=== PATIENT | female | born 1985 | race Caucasian/White ===

== ENCOUNTER 2020-02-27 22:30 | Inpatient (IN) | payer OTHER, SELFPAY ==
[2020-02-27] VITALS (13 sets, daily range): BP systolic 125–141; BP diastolic 70–86; PULSE 87–107; O2SAT 100
--- NOTE | 2020-02-27 23:13 | WPDOBADMIT ---
Obstetrics - Admit Note Admission Note: record reviewed. No pertinent additions to the history and/or any subsequent changes in the physical findings that are not consistent with the expected course of the were found. Pt arrived in labor at 5 cm dipesh q 2 minutes. gbs unknown. Additions to the history and/or subsequent changes in the physical findings follow. None.
[2020-02-27] MEDS: LACTATED RINGERS 1,000 ML 125 ML IV CONT (23:18)
[2020-02-27] MEDS: AMPICILLIN 2 GM/NS 100 ML 2 GM/100 ML BAG IVPB (23:19)
[2020-02-27 23:26] LABS: Basophils Percent Auto 0.2 % (0.2-1.2); Eosinophils Absolute Auto 0.1 K/mm3 (0-0.3); Eosinophils Percent Auto 0.5 % (0-4.4); Hematocrit 32.4 % (37.0-47.0); Hemoglobin 10.5 g/dL (12.0-15.0); Immature Granulocyte Absolute 0.12 K/mm3 (0.00-0.031); Immature Granulocyte Percent A 1.2 % (0-0.5); Lymphocytes Absolute Auto 1.57 K/mm3 (0.9-3.2); Lymphocytes Percent Auto 15.9 % (18.3-44.2); Mean Corpuscular HGB Conc 32.4 g/dl (32-36); Mean Corpuscular Hemoglobin 25.5 pg (26-34); Mean Corpuscular Volume 78.8 fl (80-100); Mean Platelet Volume 12.9 fl (7.4-10.4); Neutrophils Absolute Auto 7.1 K/mm3 (1.3-6.7); Neutrophils Percent Auto 72.2 % (45.5-73.1); Platelet Count Result 205 k/mm3 (150-375); Red Blood Count 4.11 M/mm3 (4.2-5.4); Red Cell Distribution Width 16.2 % (11.5-14.5); White Blood Count 9.9 K/mm3 (4.5-10.0)
--- NOTE | 2020-02-27 23:27 | LDADM ---
This patient, Payal Barros, was admitted to Labor/Delivery/Recovery 105 on 02/27/20 at 22:30. Plans for labor, pain management and were discussed with patient. Patient/family oriented to hospital policies and general routines including ID bracelet, bed and alarms, visiting hours, pain management, procedures, bathroom and other care routines, personal items, smoking policy, room service/diet and guest tray routines, infant security routines, and visiting hours. Patient/Family are encouraged to report perceived risks to care and to ask questions if they do not understand what they are told or what they should do. See OBIX for further documentation.
[2020-02-28] VITALS (30 sets, daily range): BP systolic 100–188; BP diastolic 60–130; PULSE 77–119; RESP 16; TEMP 36.6–37.1; O2SAT 99–100; BMI 35.5
--- NOTE | 2020-02-28 00:21 | WPDANESEPPF ---
Anes - Initial Pre Proc Eval Procedure: labor epidural Date/Time: 02/28/20 00:21 Surgeon: Krystal Resendiz MD Pre Op Diagnosis: labor pain Pre Op Diagnosis: Contractions Patient Data Age: 34 Gender: F Height: 1.73 m Weight: 106 kg Last Vital Signs Pulse 115 H 02/28/20 00:19 BP 154/100 H 02/28/20 00:19 Pulse Ox 100 02/28/20 00:13 Laboratory Tests 02/27/20 02/27/20 23:18 23:18 WBC 9.9 K/mm3 K/mm3 (4.5-10.0) RBC 4.11 M/mm3 L M/mm3 (4.2-5.4) Hgb 10.5 g/dL L g/dL (12.0-15.0) Hct 32.4 % L % (37.0-47.0) MCV 78.8 fl L fl (80-100) MCH 25.5 pg L pg (26-34) MCHC 32.4 g/dl g/dl (32-36) RDW 16.2 % H % (11.5-14.5) Plt Count 205 k/mm3 k/mm3 (150-375) MPV 12.9 fl H fl (7.4-10.4) Immature Gran % (Auto) 1.2 % H % (0-0.5) Neut % (Auto) 72.2 % % (45.5-73.1) Lymph % (Auto) 15.9 % L % (18.3-44.2) [place] % (Auto) 10.0 % H % (2.6-8.5) Eos % (Auto) 0.5 % % (0-4.4) Baso % (Auto) 0.2 % % (0.2-1.2) Lymph # (Auto) 1.57 K/mm3 K/mm3 (0.9-3.2) [place] # (Auto) 1.0 K/mm3 H K/mm3 (0.1-0.6) Eos # (Auto) 0.1 K/mm3 K/mm3 (0-0.3) Baso # (Auto) 0.0 K/mm3 K/mm3 (0.0-0.1) Abs Immat Gran (auto) 0.12 K/mm3 H K/mm3 (0.00-0.031) Absolute Neuts (auto) 7.1 K/mm3 H K/mm3 (1.3-6.7) Absolute Nucleated RBC 0.0 K/mm3 K/mm3 (0.0-0.012) Nucleated RBC % 0.0 % % (0.0-0.2) RPR Pending Patient hx anesthesia problems: none Family hx anesthesia problems: none PMFSH Social History Social History Smoking status: Never smoker Substance use: never Gender identity (if verbalized by the patient): Female Sexual Orientation (if Verbalized by the Patient): Straight or Heterosexual Spiritual care concerns: No Anes - Eval Final PreProcedure Day of Procedure 02/28/20 00:21 Patient weight: obese Heart: regular rate and rhythm Lungs: clear to auscultation and normal air movement Airway: Mallampati scale class II Neurological: alert and oriented ASA classification: II Anesthetic plan: proceed Anesthesia type and monitoring: regional epidural and standard monitoring Informed Consent: The patient's anesthetic plan and its attendant risks and benefits were discussed with the patient/family/POA. Questions were solicited and answers provided to the satisfaction of the patient/family/POA.
[2020-02-28] MEDS: AMPICILLIN 1 GM/NS 50 ML 1 GM/50 ML BAG IVPB (02:47)
[2020-02-28] MEDS: OXYTOCIN 30 UNITS/NS 500 ML 30 UNITS/500 ML BAG 999 UNITS IV CONT (03:35)
--- NOTE | 2020-02-28 03:42 | P.PCNOB_ITS ---
OB - Delivery Note Procedure Delivery date: 02/28/20 Procedure: vaginal . events: Labor < 37 Weeks Intrapartal events: None Induction method: none Delivery augmentation: rupture of membranes Delivery monitor: external FHT and external uterine Route of delivery: Episiotomy description: None Laceration description: None Specimen: Yes Estimated blood loss (mL): 215 Anesthesia type: Epidural Disposition: other () [place] Baby Date of : 02/28/20 Time of : 03:28 Weeks of gestation at delivery: 36 Infant gender: Female Weight (pounds): 6 Weight (ounces): 15 presentation: vertex position: Left Occiput Anterior Placenta delivery description: Spontaneous cord vessel description: 3 Vessels, True Knot, Clamped/Cut and Around Extremity x1 score one minute: 8 score five minutes: 9 Narrative: mother and baby skin to skin, in stable condition.
[2020-02-28] MEDS: OXYTOCIN 30 UNITS/NS 500 ML 30 UNITS/500 ML BAG 125 UNITS IV CONT (04:13)
--- NOTE | 2020-02-28 07:18 | PC.NURSE ---
Patient transferred to post room #283 via wheelchair. Support person present. Oriented to unit, room, information board, rooming in, admission packet and security measures. Patient verbalizes understanding.
[2020-02-28] MEDS: IBUPROFEN 600 MG TABLET PO ×2 (07:53→14:56)
[2020-02-28] MEDS: ONDANSETRON HCL ODT 4 MG TABLET PO (11:22)
[2020-02-28] MEDS: TETANUS,DIPHTHERIA,AC PERTUSSIS ADULT (0.5 ML) BOOSTRIX IM (14:59)
[2020-02-28] MEDS: ACETAMINOPHEN 325 MG TABLET 650 MG PO (18:39)
[2020-02-28] MEDS: HYDROCORTISONE 1% 30 GM CREAM 1 APPLIC TOPICAL (20:15)
[2020-02-29 05:27] LABS: Hematocrit 28.8 % (37.0-47.0); Hemoglobin 8.9 g/dL (12.0-15.0)
[2020-02-29 07:00] VITALS: BP 128/79; PULSE 77; RESP 18; TEMP 36.6; O2SAT 99
[2020-02-29] MEDS: IBUPROFEN 600 MG TABLET PO ×3 (07:15→19:01)
[2020-02-29] MEDS: DOCUSATE SODIUM 100 MG CAPSULE PO ×2 (07:16→17:11)
[2020-02-29] MEDS: POLYSACCHARIDE IRON COMPLEX 150 MG CAPSULE PO ×2 (07:16→17:11)
--- NOTE | 2020-02-29 10:39 | PM.OBPNVD ---
OB - PN: Subj Subjective Date/time seen: 02/29/20 10:39 Patient comments: no complaints and pain well controlled baby status: doing well OB - PN: Obj Data Labs CBC & Chem 7: 02/29/20 05:12 Labs: Laboratory Results - last 24 hr 02/29/20 05:12 Hgb 8.9 L Hct 28.8 L OB - PN A/P Plan day: 1 Plan: routine care Time Spent With Patient Time: Total time spent is greater than 50% in coordination of care (as documented) at patient's floor/unit and/or counseling patient: Review of Systems Review of Systems: All systems reviewed & are unremarkable except as noted in HPI and below Exam Const: General: comfortable Chest: Breast/axilla inspection: normal inspection of the breasts Resp: Effort & Inspection: normal respiratory effort Psych: Appearance: grossly normal Affect: normal affect Attitude: cooperative Judgement: Good judgement present (Psych)
[2020-02-29 18:53] VITALS: BP 134/67; PULSE 84; RESP 16; TEMP 37; O2SAT 100
[2020-02-29] MEDS: WITCH HAZEL 40 PADS 1 PAD TOPICAL (19:02)
[2020-03-01] MEDS: IBUPROFEN 600 MG TABLET PO (05:57)
[2020-03-01 07:19] LABS: Rapid Plasma Reagin Non-Reactive (NonReactive)
[2020-03-01] MEDS: POLYSACCHARIDE IRON COMPLEX 150 MG CAPSULE PO (07:46)
[2020-03-01] MEDS: DOCUSATE SODIUM 100 MG CAPSULE PO (07:46)
[2020-03-01] MEDS: WITCH HAZEL 40 PADS 1 PAD TOPICAL (07:47)
[2020-03-01] MEDS: BENZOCAINE 20% AER SPR (*SP) 56 GM CAN 1 SPRAY TOPICAL (07:47)
--- NOTE | 2020-03-01 07:56 | PM.OBPNVD ---
OB - PN: Subj Subjective Date/time seen: 03/01/20 07:56 Patient comments: no complaints, pain well controlled and tolerating diet OB - PN: Obj Data Labs CBC & Chem 7: 02/29/20 05:12 Labs: Laboratory Results - last 24 hr 02/27/20 23:18 RPR Non-reactive OB - PN A/P Plan day: 2 Plan: routine care and discharge home Time Spent With Patient Time: Total time spent is greater than 50% in coordination of care (as documented) at patient's floor/unit and/or counseling patient: Exam Const: General: comfortable and no acute distress Resp: Effort & Inspection: normal respiratory effort Auscultation: no rales, no rhonchi and no wheezes Cardio: Rate: regular rate Heart sounds: no click, no murmurs and no rubs GI: GI Palp: Yes Soft to palpation and No Tenderness to palpation present (GI) Auscultation: normal bowel sounds Extrem: General: normal to inspection, no pedal edema and no calf tenderness
--- NOTE | 2020-03-01 07:57 | P.DS_ITS ---
DS: Admitting Diagnosis Admitting Diagnosis Admitting Diagnosis: Contractions DS: Discharge Diagnosis Discharge Diagnosis (1) Term delivered: Code(s): O80 - Encounter for full-term uncomplicated delivery Status: Acute OB - DS: Summary OB Procedures : None OB Procedures Intrapartum: Spontaneous Vag Delivery OB Procedures: : None Peripartum Data Delivery Method: Natural Vaginal Time Spent with Patient Time attestation: Total time spent providing and/or coordinating discharge services: DS: Data Data Completed and Pending Pending studies at discharge: Pending at discharge 02/28/20 03:35 Surgical [PTH] Routine Labs on day of discharge: Labs from last 24 hours 02/27/20 23:18 RPR Non-reactive Discharge Plan Discharge Attending physician on discharge: Kathy Martinez Consulting providers: Uma Vargas Sarah E. Discharging Clinician: Kathy Martinez Patient Disposition: Home, Self-Care Activity: pelvic rest Diet: regular Discharge Instructions: Education: Mom and Baby Guide Given to: Mother Follow-Up: Call your delivering provider's office for an appointment to be seen in: 4 Weeks Mom and baby should come to the [facility] for the follow-up appointment. Appointment Date/Time: March 02, 2020 at 8:00 am What to expect at your follow-up visit: Blood Pressure Check Physical Assessment Call [phone] if you are unable to keep your appointment time. BREAST CARE: * Wear a snug supportive bra. * Bottle Feeding: * May apply ice packs EPISIOTOMY/PERINEAL CARE: * Until bleeding stops, use your maik bottle after urinating * Change your pad frequently throughout the day * You may take sitz baths several times a day (fill your bathtub with warm water and soak for 20 minutes.) Do NOT bathe in the water * No tub baths until seen by your physician - You may shower ACTIVITY: * Rest as much as possible. * Do not exercise or lift anything heavier than your baby (such as laundry or other children.) * Avoid stairs or driving as much as possible. * Do not put anything into the vagina. No douching, tampons, or sexual activity until seen by physician. NOTIFY PHYSICIAN IF YOU HAVE ANY QUESTIONS OR IF ANY OF THE FOLLOWING SYMPTOMS OCCUR: * If your perineum becomes red, swollen, or more painful than what you have experienced in the hospital. * If your vaginal bleeding becomes foul smelling. * If your vaginal bleeding becomes more heavy than a period or if your bleeding changes from pink to bright red. However, you may pass an occasional walnut- sized clot once or twice for the first week . * If you experience a sharp, shooting pain in your calves. * If you discover a hard, reddened area on your breast or if you experience flu- like symptoms. DIET: * Eat regular, well-balanced meals. * Drink plenty of fluids daily. If , drink to thirst. Stand Alone Forms: General Discharge Information Follow-up/Referrals: Kathy Martinez MD [Physician] - Date of admission: 02/27/20 22:30 Primary Care Provider: Joe Mayfield Admitting Provider: Kathy Martinez Discharge Date/Time: 03/01/20 11:04 Attending physician on admission: Kathy Martinez
[2020-03-01 09:16] VITALS: BP 115/75; PULSE 71; RESP 16; TEMP 36.2; O2SAT 99
[2020-03-02 07:55] VITALS: BP 131/80; PULSE 84; RESP 20; TEMP 37.6
== END 2020-03-01 11:04 | disposition home or self-care (01) | DRG 560 ==
LOC: ANHLDR 23:21 → ANHOB2 03-01 07:58 → ANHLDR 03-01 16:51 → ANHOB2 03-01 16:51
PROVIDERS: Advanced Practice Midwife; Admitting Provider Obstetrics & Gynecology; Visit Provider Obstetrics & Gynecology
DX: O60.14X0 Preterm labor third trimester with preterm delivery third trimester, not applicable or unspecified (principal); Z37.0 Single live birth; Z3A.36 36 weeks gestation of pregnancy; O99.824 Streptococcus B carrier state complicating childbirth; Z23 Encounter for immunization; O99.214 Obesity complicating childbirth; E66.9 Obesity, unspecified; O69.2XX0 Labor and delivery complicated by other cord entanglement, with compression, not applicable or unspecified
CPT/HCPCS: 36415; 85014; 85018; 85025; 86592; 86850; 86900; 86901; 88307; 90471; 90686; 90715; A9270; G0008; J0290; J2590; J2795; J7120

== ENCOUNTER 2023-11-07 21:12 | Inpatient (IN) | payer OTHER, SELFPAY ==
[2023-11-07] MEDS: TERBUTALINE SULFATE 1 MG/ML VIAL 0.25 MG SUB-Q ×2 (22:17→22:50)
[2023-11-07] MEDS: BETAMETHASONE SOD PHOS/ACETATE 30 MG/5 ML VIAL 12 MG IM (22:22)
[2023-11-07] MEDS: LACTATED RINGERS 1,000 ML 125 ML IV CONT (22:52)
[2023-11-08] VITALS (129 sets, daily range): BP systolic 115–163; BP diastolic 58–106; PULSE 32–139; RESP 16; TEMP 36.8–37.6; O2SAT 92–100; BMI 38.5
--- NOTE | 2023-11-08 00:11 | LDADM ---
This patient, Payal Barros, was admitted to Labor/Delivery/Recovery 105 on 11/08/23 at 00:08. Plans for labor, pain management and were discussed with patient. Patient/family oriented to hospital policies and general routines including ID bracelet, bed and alarms, visiting hours, pain management, procedures, bathroom and other care routines, personal items, smoking policy, room service/diet and guest tray routines, infant security routines, and visiting hours. Patient/Family are encouraged to report perceived risks to care and to ask questions if they do not understand what they are told or what they should do. See OBIX for further documentation.
[2023-11-08] MEDS: AMPICILLIN 2 GM/NS 100 ML 2 GM/100 ML BAG IVPB (00:22)
[2023-11-08 00:23] LABS: Basophils Percent Auto 0.2 % (0.2-1.2); Eosinophils Percent Auto 0.1 % (0-4.4); Hematocrit 31.8 % (37.0-47.0); Hemoglobin 9.7 g/dL (12.0-15.0); Immature Granulocyte Absolute 0.13 K/mm3 (0.00-0.031); Immature Granulocyte Percent A 1.2 % (0-0.5); Lymphocytes Absolute Auto 1.13 K/mm3 (0.9-3.2); Lymphocytes Percent Auto 10.3 % (18.3-44.2); Mean Corpuscular HGB Conc 30.5 g/dl (32-36); Mean Corpuscular Hemoglobin 23.5 pg (26-34); Monocytes Absolute Auto 0.6 K/mm3 (0.1-0.6); Monocytes Percent Auto 5.5 % (2.6-8.5); Neutrophils Absolute Auto 9.1 K/mm3 (1.3-6.7); Neutrophils Percent Auto 82.7 % (45.5-73.1); Platelet Count Result 225 k/mm3 (150-375); Red Blood Count 4.13 M/mm3 (4.2-5.4); Red Cell Distribution Width 16.5 % (11.5-14.5)
[2023-11-08 01:14] LABS: HIV 1/2 Ab P24 Ag Result Negative (Negative)
--- NOTE | 2023-11-08 01:32 | P.PNAN_ITS ---
Anes - Eval Pre Procedure Procedure: labor epidural Date/Time: 11/08/23 01:32 Surgeon: bud Preop Diagnosis: pain during labor Pre Op Diagnosis: Contractions Patient Data Age: 38 Gender: F Height: 1.7 m Weight: 111.5 kg Last Vital Signs Pulse Ox 100 11/08/23 01:30 O2 Del Method Room Air 11/08/23 00:10 Allergies Allergy/AdvReac Type Severity Reaction Status Date / Time No Known Allergies Allergy Verified 02/28/20 01:09 Laboratory Tests 11/08/23 00:16 WBC 11.0 H K/mm3 (4.5-10.0) RBC 4.13 L M/mm3 (4.2-5.4) Hgb 9.7 L g/dL (12.0-15.0) Hct 31.8 L % (37.0-47.0) MCV 77.0 L fl (80-100) MCH 23.5 L pg (26-34) MCHC 30.5 L g/dl (32-36) RDW 16.5 H % (11.5-14.5) Plt Count 225 k/mm3 (150-375) MPV 12.0 H fl (7.4-10.4) Immature Gran % (Auto) 1.2 H % (0-0.5) Neut % (Auto) 82.7 H % (45.5-73.1) Lymph % (Auto) 10.3 L % (18.3-44.2) [place] % (Auto) 5.5 % (2.6-8.5) Eos % (Auto) 0.1 % (0-4.4) Baso % (Auto) 0.2 % (0.2-1.2) Lymph # (Auto) 1.13 K/mm3 (0.9-3.2) [place] # (Auto) 0.6 K/mm3 (0.1-0.6) Eos # (Auto) 0.0 K/mm3 (0-0.3) Baso # (Auto) 0.0 K/mm3 (0.0-0.1) Abs Immat Gran (auto) 0.13 H K/mm3 (0.00-0.031) Absolute Neuts (auto) 9.1 H K/mm3 (1.3-6.7) Absolute Nucleated RBC 0.000 K/mm3 (0.0-0.012) Nucleated RBC % 0.0 % (0.0-0.2) RPR Pending HIV 1&2 Ab/P24 Ag 4thGn Negative (Negative) Patient hx anesthesia problems: none Family hx anesthesia problems: none Results Review: All pre-operative results and documents have been reviewed as part of the pre- operative evaluation. [facility] Past Medical History Medical History (Updated 11/08/23 @ 01:33 by Ann Marie Zaidi CRNA) Anxiety Depression Obesity (BMI 30-39.9) Family History Family History (Updated 11/08/23 @ 00:45 by Yogesh Wesley RN) Other Fabry (jon) disease Hyperthyroidism Lung cancer Social History Social History Smoking status: Never smoker Second hand tobacco smoke exposure: No Substance use: never Do You Feel Safe in your Home?: Yes Lack of Transportation: No Lack of Food: Never True Current Housing: I Have Housing Concerned About Future Housing: No Difficulty Paying Gas/Electric Bills: No Difficulty Paying for Meds: No Currently Unemployed: No Education: High School Diploma/GED Difficulty w/ Childcare or Family Care: No Gender identity (if verbalized by the patient): Female Sexual Orientation (if Verbalized by the Patient): Straight or Heterosexual Spiritual care concerns: No Exam Day of Procedure 11/08/23 01:32
[2023-11-08] MEDS: LACTATED RINGERS 1,000 ML 125 ML IV CONT (02:03)
[2023-11-08] MEDS: AMPICILLIN 1 GM/NS 50 ML 1 GM/50 ML BAG IVPB ×2 (04:21→08:28)
--- NOTE | 2023-11-08 06:37 | PM.IMHP ---
H&P: HPI History of Present Illness Date/Time: 11/08/23 06:37 Chief Complaint: pt arrived in LD for evaluation of contractions, Pt arrived at 2 cm, 2 doses of terbutaline and IV hydration, pt advanced to 6 cm over the am, antibiotic were started and dose of betamethasone given. this morning, pt resting comfortably with epidural. complicated by anemia, AMA, and history of preeclampsia.Dr. Martinez updated Review of Systems Review of Systems: All systems reviewed & are unremarkable except as noted in HPI and below PMFSH Past Medical History Medical History (Updated 11/08/23 @ 06:50 by Marta Veronica CNM) Anxiety Depression Obesity (BMI 30-39.9) Family History Family History (Updated 11/08/23 @ 00:45 by Yogesh Wesley RN) Other Fabry (-jon) disease Hyperthyroidism Lung cancer Social History Social History Smoking status: Never smoker Second hand tobacco smoke exposure: No Substance use: never Do You Feel Safe in your Home?: Yes Lack of Transportation: No Lack of Food: Never True Current Housing: I Have Housing Concerned About Future Housing: No Difficulty Paying Gas/Electric Bills: No Difficulty Paying for Meds: No Currently Unemployed: No Education: High School Diploma/GED Difficulty w/ Childcare or Family Care: No Gender identity (if verbalized by the patient): Female Sexual Orientation (if Verbalized by the Patient): Straight or Heterosexual Spiritual care concerns: No Meds Home Medications and Allergies Allergies Allergy/AdvReac Type Severity Reaction Status Date / Time No Known Allergies Allergy Verified 02/28/20 01:09 Vital Signs Vital Signs - 24 hr 11/08/23 01:30 11/08/23 01:35 11/08/23 01:40 Temperature Pulse Rate Blood Pressure Pulse Oximetry 100 100 100 Oxygen Delivery 11/08/23 01:41 11/08/23 01:43 11/08/23 01:45 Temperature Pulse Rate 94 96 98 Blood Pressure 153/74 H 148/83 H 162/81 H Pulse Oximetry 100 Oxygen Delivery 11/08/23 01:47 11/08/23 01:47 11/08/23 01:48 Temperature Pulse Rate 91 Blood Pressure 142/83 H Pulse Oximetry 100 100 98 Oxygen Delivery 11/08/23 01:50 11/08/23 01:53 11/08/23 01:55 Temperature Pulse Rate 88 90 97 Blood Pressure 137/75 153/74 H 152/77 H Pulse Oximetry 100 Oxygen Delivery 11/08/23 01:58 11/08/23 02:00 11/08/23 02:03 Temperature Pulse Rate 96 100 98 Blood Pressure 151/81 H 152/76 H 163/74 H Pulse Oximetry 100 99 Oxygen Delivery 11/08/23 02:05 11/08/23 02:08 11/08/23 02:10 Temperature Pulse Rate 91 93 87 Blood Pressure 151/80 H 152/76 H 141/72 H Pulse Oximetry 100 Oxygen Delivery 11/08/23 02:13 11/08/23 02:16 11/08/23 02:18 Temperature Pulse Rate 95 93 102 H Blood Pressure 151/76 H 154/79 H 146/79 H Pulse Oximetry 99 100 Oxygen Delivery 11/08/23 02:20 11/08/23 02:23 11/08/23 02:28 Temperature Pulse Rate 89 98 Blood Pressure 149/76 H 145/79 H Pulse Oximetry 99 100 Oxygen Delivery 11/08/23 02:30 11/08/23 02:33 11/08/23 02:38 Temperature Pulse Rate 89 Blood Pressure 149/80 H Pulse Oximetry 100 100 Oxygen Delivery 11/08/23 02:43 11/08/23 02:45 11/08/23 02:24 Temperature 36.9 C Pulse Rate 94 Blood Pressure 146/106 H Pulse Oximetry 100 Oxygen Delivery 11/08/23 02:48 11/08/23 02:49 11/08/23 02:53 Temperature Pulse Rate 85 Blood Pressure 151/76 H Pulse Oximetry 100 100 Oxygen Delivery 11/08/23 02:58 11/08/23 03:00 11/08/23 03:03 Temperature Pulse Rate 110 H Blood Pressure 149/81 H Pulse Oximetry 98 100 Oxygen Delivery 11/08/23 03:08 11/08/23 03:13 11/08/23 03:15 Temperature Pulse Rate 97 Blood Pressure 150/79 H Pulse Oximetry 100 99 Oxygen Delivery 11/08/23 03:18 11/08/23 03:23 11/08/23 03:28 Temperature Pulse Rate B
[2023-11-08 07:43] LABS: Rubella IgG Antibody 4.6 IU/ML
[2023-11-08] MEDS: OXYTOCIN 30 UNITS/NS 500 ML 30 UNITS/500 ML BAG 999 UNITS IV CONT (09:15)
--- NOTE | 2023-11-08 09:37 | P.PCNOB_ITS ---
OB - Vaginal Delivery Note Procedure Delivery date: 11/08/23 Intrapartal Events: Other ( labor) Delivery augmentation: Rupture of Membranes Delivery monitor: External FHT and External Uterine Route of delivery: Episiotomy description: None Laceration Description: None Specimen: Yes Quantitative Blood Loss (ml): 110 Anesthesia type: Epidural Disposition: Floor Narrative: hed delivered, anterior shoulder not easily delivered, gently lifted posterior shoulder and then anterior shoulder loosened and was delivered, followed by the rest of the baby without difficulty. [place] Baby Weeks of gestation at delivery: 35
[2023-11-08] MEDS: OXYTOCIN 30 UNITS/NS 500 ML 30 UNITS/500 ML BAG 125 UNITS IV CONT (09:46)
[2023-11-08] MEDS: WITCH HAZEL 40 PADS 1 PAD TOPICAL (11:24)
[2023-11-08] MEDS: IBUPROFEN 600 MG TABLET PO ×2 (12:49→21:44)
[2023-11-08] MEDS: DOCUSATE SODIUM 100 MG CAPSULE PO (15:34)
[2023-11-08] MEDS: POLYSACCHARIDE IRON COMPLEX 150 MG CAPSULE PO (15:34)
[2023-11-08 18:06] LABS: Rapid Plasma Reagin Non-Reactive (NonReactive)
[2023-11-08 20:04] LABS: Hemoglobin 8.8 g/dL (12.0-15.0)
--- NOTE | 2023-11-09 08:05 | PM.OBDSVD ---
DS: Admitting Diagnosis Discharge Date 11/08/23 Admitting Diagnosis labor DS: Discharge Diagnosis Discharge Diagnosis (1) Vaginal delivery: Code(s): O80 - Encounter for full-term uncomplicated delivery Status: Acute OB - DS: Summary OB Procedures : None OB Procedures Intrapartum: Spontaneous Vag Delivery OB Procedures: : None Peripartum Data Laceration Description: None Episiotomy description: None Time Spent with Patient Time attestation: Total time spent providing and/or coordinating discharge services: DS: Data Data Completed and Pending Pending studies at discharge: Pending at discharge 11/08/23 09:16 Surgical [PTH] Routine Labs on day of discharge: Labs from last 24 hours 11/08/23 11/08/23 19:59 00:16 Hgb 8.8 L Hct 29.0 L RPR Non-reactive Discharge Plan Discharge Attending physician on discharge: Marta Veronica Discharging Clinician: Marta Veronica Anticipated Discharge Date/Time: 11/08/23 22:42 Patient Disposition: Home, Self-Care Activity: pelvic rest Diet: regular Discharge Instructions: Education: Mom and Baby Guide Given to: Mother Follow-Up: Call your delivering provider's office for an appointment to be seen in: 6 Weeks Mom [facility] for the follow-up appointment. Appointment Date/Time: November 10, 2023 at 10:00 am What to expect at your follow-up visit: Physical Assessment Call [phone] if you are unable to keep your appointment time. BREAST CARE: * Wear a snug supportive bra. * For engorgement discomfort: Breast Feeding: * Apply warm moist washcloths * Express milk as needed to relieve engorgement * Wear loose clothing Bottle Feeding: * May apply ice packs * For sore nipples: * Identify correct latch-on * Apply warm moist washcloths before and after nursing * Air dry nipples after nursing * May apply Lansinoh cream to nipples EPISIOTOMY/PERINEAL CARE: * Until bleeding stops, use your maik bottle after urinating * Change your pad frequently throughout the day * You may take sitz baths several times a day (fill your bathtub with warm water and soak for 20 minutes.) Do NOT bathe in the water * No tub baths until seen by your physician - You may shower ACTIVITY: * Rest as much as possible. * Do not exercise or lift anything heavier than your baby (such as laundry or other children.) * Avoid stairs or driving as much as possible. * Do not put anything into the vagina. No douching, tampons, or sexual activity until seen by physician. NOTIFY PHYSICIAN IF YOU HAVE ANY QUESTIONS OR IF ANY OF THE FOLLOWING SYMPTOMS OCCUR: * If your episiotomy or incision becomes red, swollen, or more painful than what you have experienced in the hospital. * If your vaginal bleeding becomes foul smelling. * If your vaginal bleeding becomes more heavy than a period or if your bleeding changes from pink to bright red. However, you may pass an occasional walnut-sized clot once or twice for the first week . * If you experience a sharp, shooting pain in you calves. * If you discover a hard, reddened area on your breast or if you experience flu-like symptoms. DIET: * Eat regular, well-balanced meals. * Drink plenty of fluids daily. If , drink to thirst. Stand Alone Forms: General Discharge Information Follow-up/Referrals: Marta Veronica CNM [Certified Nurse Journal Clerk] - 6 Weeks Discharge Medications: New polysaccharide iron complex 150 mg iron Capsule 150 mg PO BIDWM Qty: 60 0RF Date of admission: 11/07/23 21:12 Primary Care Provider: UNKNOWN,DOCTOR Admitting Provider: Edmundo Martinez Attending physician on admission: Edmundo Martinez Condition: Stable
== END 2023-11-08 23:47 | disposition home or self-care (01) | DRG 560 ==
LOC: ANHLDR 11-08 09:06 → ANHOB2 11-08 12:34
PROVIDERS: Advanced Practice Midwife; Admitting Provider Obstetrics & Gynecology; Visit Provider Obstetrics & Gynecology
DX: O60.14X0 Preterm labor third trimester with preterm delivery third trimester, not applicable or unspecified (principal); O99.02 Anemia complicating childbirth; D64.9 Anemia, unspecified; O99.344 Other mental disorders complicating childbirth; F41.8 Other specified anxiety disorders; Z3A.35 35 weeks gestation of pregnancy; Z37.0 Single live birth
CPT/HCPCS: 36415; 85014; 85018; 85025; 86592; 86703; 86762; 86850; 86900; 86901; 88307; A9270; G0432; J0290; J0702; J2590; J2795; J3105; J7120